=== PATIENT | female | born 1950 | race Caucasian/White ===

== ENCOUNTER 2020-04-13 12:40 | Outpatient (REF) | payer MEDICARE, SELFPAY | END 2020-04-13 12:41 | disposition home or self-care (01) | LOC: HO.HMGCLDS 12:40 | PROVIDERS: PCP Internal Medicine; Visit Provider Internal Medicine | DX: Z11.59 Encounter for screening for other viral diseases (principal) | CPT/HCPCS: 36415; 87635 ==

== ENCOUNTER 2020-05-17 13:11 | Emergency (ER) | payer MEDICARE, SELFPAY ==
--- NOTE | 2020-05-17 | ECG_ITS ---
Test Reason : CP Blood Pressure : / mmHG Vent. Rate : 060 BPM Atrial Rate : 060 BPM P-R Int : 136 ms QRS Dur : 072 ms QT Int : 410 ms P-R-T Axes : 050 067 040 degrees QTc Int : 410 ms Normal sinus rhythm Nonspecific ST abnormality Inferior leads Abnormal ECG No previous ECGs available Referred By: Generic ED Physician Electronically Signed By:HUSSEIN ANN MD
[2020-05-17 13:22] VITALS: BP 111/61; PULSE 63; RESP 18; TEMP 36.8; O2SAT 99; BMI 25.8
[2020-05-17 13:59] VITALS: BP 108/61; PULSE 63; RESP 20; TEMP 36.9; O2SAT 99
--- NOTE | 2020-05-17 14:09 | ED_ITS ---
HPI - Chest Pain General Chief Complaint: Dyspnea Stated Complaint: CHEST PAIN,SOB Time Seen by Provider: 05/17/20 14:09 Source: patient Mode of arrival: ambulatory Limitations: no limitations History of Present Illness MD complaint: chest pain and chest heaviness Pertinent past history: other (seems to have started after she started taking her new statin) Onset (ago): day(s) (this Friday) Timing of current episode: episodic Prior episodes: No Onset: during rest and during exertion Pain location: substernal and right chest Pain radiation: none Severity: moderate Quality: heaviness Relieving factors: nothing Exacerbating factors: exertion and movement Associated symptoms: dyspnea Treatment prior to arrival: none Related Data Allergies Allergy/AdvReac Type Severity Reaction Status Date / Time No Known Allergies Allergy Unverified 03/30/20 16:27 [No Known Allergies*] Review of Systems Review of Systems: Constitutional : No Weight loss, No Fever, No Chills ENT/Mouth : No sore throat, No Rhinorrhea Eyes: No Eye Pain, No Swelling Cardiovascular : pos Chest Pain, pos SOB, no Dyspnea on Exertion, No Orthopnea, No Edema, No Palpitations Respiratory : No Cough, No Sputum Gastrointestinal : no Nausea, No Vomiting, No Diarrhea, No abdominal Pain, No Hematochezia, No Melena Genitourinary : No Dysuria, No Urinary Frequency Musculoskeletal : No joint pain, No Myalgias, No Joint Swelling Skin : No Skin Lesions, No rash Neuro : No Weakness, No Numbness, No Dizziness, No Headache Psych : No Anxiety/Panic, No Depression Heme/Lymph: No Bruising, No Lymphadenopathy Endocrine : No Polyuria, No Polydipsia All other systems reviewed and are negative [facility] Past Medical History Medical History High cholesterol Social History Social History Alcohol intake: former Smoking Status: Never smoker Use of substances other than those prescribed or required for medical reasons: No Advance Directives: Yes Advance Directives Information Provided: Yes () Advance Directives on File: No Physical Exam Vital Signs: Vital Signs: Vital Signs Temp Pulse Resp BP Pulse Ox 05/17/20 13:59 98.4 F 63 20 108/61 99 05/17/20 13:22 98.2 F 63 18 111/61 99 Body Mass Index 25.8 Appearance: Alert. Oriented X3. No acute distress. Eyes: Pupils equal, round and reactive to light. ENT: Pharynx normal. Neck: Normal inspection. Neck supple. CVS: Normal heart rate and rhythm. Pulses normal. Respiratory: No respiratory distress. Breath sounds normal. Abdomen: Soft and nontender. Skin: Skin warm and dry. Normal skin color. Normal skin turgor. Extremities: No lower extremity edema. No calf ttp Neuro: Oriented X 3. No motor deficit. No sensory deficit. Course Course Course Narrative: 2 days of pain, EKG nonischemic, troponin negative, CTA:PE negative stable for DC, LFTs up - will hold statin and recheck has no RUQ pain MDM - Chest Pain MDM Narrative Medical decision making narrative: 69 yo female with hx of GERD and HPL has had chest pain since Friday, just started taking a statin, has had it all day today as well and feels short of breath, pain is R sided at this time will need labs, troponin x 1, CXR, ddimer - seems somewhat atypical for ACS, she is very nervous as well Lab Data Result diagrams: 05/17/20 14:44 05/17/20 14:44 Labs: Lab Results 05/17/20 05/17/20 05/17/20 Range/Units 14:44 14:44 14:44 WBC 5.3 (4.8-10.8) X10*3/uL RBC 3.88 L (4.20-5.50) X10*6/uL Hgb 12.4 (12.0-16.0) g/dl Hct 37.9 (37-47) % MCV 97.7 (80-98) fL MCH 32.0 (27.0-33.0) pg MCHC 32.7 (31.0-35.0) g/dl RDW 12.6 (11.0-16.0) % Plt Count 150 L (160-400) X10*3/uL MPV 12.0 (9.4-12.3) fL Immature Gran % (Auto) 0.4 (0.0-0.4) % Neut % (Auto) 64.5 (45-73) % Lymph % (Auto) 26.2 (20-40) % [place] % (Auto) 7.0 (2-11) % Eos % (Auto) 1.5 (0-4) % Baso % (Auto) 0.4 (0-2) % Lymph # (Auto) 1.4 (1.2-4.9) X10*3/uL [place] # (Auto) 0.4 (0.1-1.2) X10*3/uL Eos # (Auto) 0.1 (0.0-0.4) X10*3/uL Baso # (Auto) 0.0 (0.0-0.2) X10*3/uL Abs Immat Gran (auto) 0.02 (0.00-0.03) X10*3/uL Absolute Neuts (auto) 3.4 (2.0-8.3) X10*3/uL Absolute Nucleated RBC 0.000 (0.0-0.012) X10*3/uL Nucleated RBC % (auto) 0.0 (0.0-0.2) /100WBC D-Dimer 1560 NG/ML Sodium 139 (135-145) mmol/L Potassium 4.9 (3.3-5.1) mmol/l Chloride 105 (96-108) mmol/L Carbon Dioxide 26 (22-29) mmol/L Anion Gap 13 (12-20) BUN 16 (9-16) mg/dL Creatinine 0.85 (0.5-1.4) mg/dL Estim Creat Clear Calc 64.6 Estimated GFR > 60 Random Glucose 104 (60-115) mg/dL Calcium 8.5 (8.4-10.2) mg/dL Magnesium 2.1 (1.6-2.6) mg/dL Total Bilirubin 0.3 (0.0-1.0) mg/dL Direct Bilirubin < 0.2 (0.0-0.5) mg/dL AST 133 H (5-31) U/L ALT 92 H (0-31) U/L Alkaline Phosphatase 71 (39-117) U/L Troponin I High Sens (<3.5-17.0) ng/L B-Natriuretic Peptide (<100) pg/mL Total Protein 6.9 (6.5-8.0) g/dL Albumin 4.1 (3.5-5.0) g/dL Lipase 61 (8-78) U/L 05/17/20 Range/Units 14:44 WBC (4.8-10.8) X10*3/uL RBC (4.20-5.50) X10*6/uL Hgb (12.0-16.0) g/dl Hct (37-47) % MCV (80-98) fL MCH (27.0-33.0) pg MCHC (31.0-35.0) g/dl RDW (11.0-16.0) % Plt Count (160-400) X10*3/uL MPV (9.4-12.3) fL Immature Gran % (Auto) (0.0-0.4) % Neut % (Auto) (45-73) % Lymph % (Auto) (20-40) % [place] % (Auto) (2-11) % Eos % (Auto) (0-4) % Baso % (Auto) (0-2) % Lymph # (Auto) (1.2-4.9) X10*3/uL [place] # (Auto) (0.1-1.2) X10*3/uL Eos # (Auto) (0.0-0.4) X10*3/uL Baso # (Auto) (0.0-0.2) X10*3/uL Abs Immat Gran (auto) (0.00-0.03) X10*3/uL Absolute Neuts (auto) (2.0-8.3) X10*3/uL Absolute Nucleated RBC (0.0-0.012) X10*3/uL Nucleated RBC % (auto) (0.0-0.2) /100WBC D-Dimer NG/ML Sodium (135-145) mmol/L Potassium (3.3-5.1) mmol/l Chloride (96-108) mmol/L Carbon Dioxide (22-29) mmol/L Anion Gap (12-20) BUN (9-16) mg/dL Creatinine (0.5-1.4) mg/dL Estim Creat Clear Calc Estimated GFR Random Glucose (60-115) mg/dL Calcium (8.4-10.2) mg/dL Magnesium (1.6-2.6) mg/dL Total Bilirubin (0.0-1.0) mg/dL Direct Bilirubin (0.0-0.5) mg/dL AST (5-31) U/L ALT (0-31) U/L Alkaline Phosphatase (39-117) U/L Troponin I High Sens 4.0 (<3.5-17.0) ng/L B-Natriuretic Peptide 50 (<100) pg/mL Total Protein (6.5-8.0) g/dL Albumin (3.5-5.0) g/dL Lipase (8-78) U/L ECG Data ECG #1: Attestation: I personally reviewed and interpreted this ECG as follows: ECG interpretation date: 05/17/20 ECG interpretation time: 14:19 Interpretation: Rate: 60 Rhythm: NSR [place]: normal Normal P waves. Normal RACHEL. Normal QRS complex. ST T wave : normal qTC: normal prior studies: no acute ischemia The study has been interpreted contemporaneously by me. . Discharge Plan Discharge Clinical Impression: Chest pain Qualifiers: Chest pain type: unspecified Qualified Code(s): R07.9 - Chest pain, unspecified Patient Disposition: Home, Self-Care Instructions: Chest Pain (ED) Additional Instructions: return to ED for any worsening symptoms or concerns stop taking atorvastatin Referrals: Sagar Jordan MD [Primary Care Provider] - 1 week (repeat liver function tests)
--- NOTE | 2020-05-17 14:14 | XR_ITS ---
EXAMINATION: XR CHEST CLINICAL INFORMATION: Dyspnea COMPARISON: None TECHNIQUE: Frontal view of the chest was obtained. FINDINGS: No significant abnormality is noted involving the heart, lungs, mediastinum, bony thorax or soft tissues. XR/XR chest 1V IMPRESSION: Unremarkable chest examination.
[2020-05-17 14:51] LABS: MANUAL DIFF FLAG NO
[2020-05-17 14:53] LABS: Basophils Percent Auto 0.4 % (0-2); Eosinophils Absolute Auto 0.1 X10*3/uL (0.0-0.4); Eosinophils Percent Auto 1.5 % (0-4); Hematocrit 37.9 % (37-47); Hemoglobin 12.4 g/dl (12.0-16.0); Imm Gran Abs Auto 0.02 X10*3/uL (0.00-0.03); Imm Gran Pct Auto 0.4 % (0.0-0.4); Lymphocytes Absolute Auto 1.4 X10*3/uL (1.2-4.9); Lymphocytes Percent Auto 26.2 % (20-40); Mean Corpuscular HGB Conc 32.7 g/dl (31.0-35.0); Mean Corpuscular Volume 97.7 fL (80-98); Monocytes Absolute Auto 0.4 X10*3/uL (0.1-1.2); Neutrophils Absolute Auto 3.4 X10*3/uL (2.0-8.3); Neutrophils Percent Auto 64.5 % (45-73); Platelet Count 150 X10*3/uL (160-400); Red Blood Count 3.88 X10*6/uL (4.20-5.50); Red Cell Distribution Width 12.6 % (11.0-16.0); White Blood Count 5.3 X10*3/uL (4.8-10.8)
[2020-05-17 15:08] LABS: D Dimer 1560 NG/ML
--- NOTE | 2020-05-17 15:11 | CT_ITS ---
EXAMINATION: CT ANGIOGRAM OF THE CHEST WITH AND WITHOUT CONTRAST (CT PULMONARY ANGIOGRAM FOR PE) CLINICAL INFORMATION: Reason for Exam chest pain elevated D-dimer COMPARISON: None TECHNIQUE: Prior to contrast administration, noncontrast localization images were obtained. Subsequently, multidetector volumetric imaging was performed from the thoracic inlet to below the diaphragms following the administration of 80 mL Omnipaque 350 intravenous contrast. No contrast reaction reported Sagittal, coronal, and MIP oblique sagittal reformatted images were obtained on the CT workstation, uploaded to PACS, and reviewed. This CT examination was performed using dose optimization techniques as appropriate, variously including the following: *Automated exposure control *Adjustment of mA and/or kV according to patient size (this includes techniques or standardized protocols for targeted exams where dose is matched to indication/reason for exam; i.e. extremities or head) *Use of iterative reconstruction technique Total exam dose-length product 312 mGy-cm FINDINGS: The exam is limited secondary to patient breathing artifact. QUALITY OF STUDY/CONTRAST BOLUS: Satisfactory. PULMONARY ARTERIES: No central or segmental pulmonary emboli. THORACIC AORTA: No aneurysm or dissection. LUNG: No focal consolidation, nodules or masses. PLEURA: No pleural effusion or pneumothorax. MEDIASTINUM: Normal heart size. No pericardial effusion. No hilar or mediastinal lymphadenopathy. No evidence of septal bowing or right heart strain. CHEST WALL/AXILLA: No axillary or internal mammary lymphadenopathy. There is mild ventral spondylosis throughout dorsal spine. OSSEOUS STRUCTURES: No lytic or sclerotic process seen. UPPER ABDOMEN: Visualized liver, spleen, pancreas and bilateral adrenal glands are unremarkable. No reflux of contrast into the hepatic veins to suggest elevated right heart pressures. CT/CT angio chest PE protocol IMPRESSION: No evidence of PE. No evidence of thoracic aneurysm. The lungs are clear. VTE: negative
[2020-05-17 15:22] LABS: Alanine Aminotransferase 92 U/L (0-31); Albumin Level 4.1 g/dL (3.5-5.0); Alkaline Phosphatase 71 U/L (39-117); Anion Gap 13 (12-20); Aspartate Amino Transferase 133 U/L (5-31); Bilirubin Direct < 0.2 mg/dL (0.0-0.5); Bilirubin Total 0.3 mg/dL (0.0-1.0); Blood Urea Nitrogen 16 mg/dL (9-16); Calcium 8.5 mg/dL (8.4-10.2); Carbon Dioxide 26 mmol/L (22-29); Chloride 105 mmol/L (96-108); Creatinine Clr Calc Pharmacy 64.6; Estimated Glomerular Filt Rate > 60; Glucose Random 104 mg/dL (60-115); Lipase 61 U/L (8-78); Magnesium 2.1 mg/dL (1.6-2.6); Potassium 4.9 mmol/l (3.3-5.1); Sodium 139 mmol/L (135-145); Total Protein 6.9 g/dL (6.5-8.0)
[2020-05-17 15:25] LABS: B Type Natriuretic Peptide 50 pg/mL (<100)
[2020-05-17] MEDS: iohexoL 350 MG/ML 100 ML INFUS..BTL 65 ML IV (15:53)
[2020-05-17 16:17] VITALS: BP 120/62; PULSE 57; RESP 13; TEMP 36.8; O2SAT 99
== END 2020-05-17 16:30 | disposition home or self-care (01) ==
PROVIDERS: Emergency Provider Emergency Medicine; PCP Internal Medicine
DX: R07.9 Chest pain, unspecified (principal)
CPT/HCPCS: 36415; 71045; 71275; 80048; 80076; 83690; 83735; 83880; 84484; 85025; 85379; 93005; 99284; Q9967

== ENCOUNTER 2021-11-13 09:37 | Emergency (ER) | payer MEDICARE, SELFPAY ==
--- NOTE | ~2021-11-13 | CT_ITS ---
EXAMINATION: CT HEAD WITHOUT CONTRAST CLINICAL INFORMATION: Fall. Head injury. COMPARISON: None TECHNIQUE: Contiguous axial imaging was performed from the skull base to vertex without intravenous administration of contrast. This CT examination was performed using dose optimization techniques as appropriate, variously including the following: *Automated exposure control *Adjustment of mA and/or kV according to patient size (this includes techniques or standardized protocols for targeted exams where dose is matched to indication/reason for exam; i.e. extremities or head) *Use of iterative reconstruction technique DLP: 578 mGy-cm FINDINGS: There is no evidence of acute intracranial hemorrhage or territorial infarction. No abnormal mass effect or midline shift is seen. [place] to white matter differentiation is well preserved. No extra-axial fluid collections are identified. The ventricles are normal in size. There is no abnormal attenuation within the brain parenchyma. The osseous structures and soft tissues are normal. The mastoid air cells and visualized portions of the paranasal sinuses are well aerated. CT/CT head/brain wo con IMPRESSION: No acute intracranial pathology.
--- NOTE | ~2021-11-13 | XR_ITS ---
EXAMINATION: XR SHOULDER, RIGHT CLINICAL INFORMATION: Limited range of motion status post fall. COMPARISON: Chest radiographs dated 05/17/2020. TECHNIQUE: AP external rotation, Grashey, scapular Y, and axillary views of the right shoulder. FINDINGS: A small osseous density seen superior to the humeral head in the humeral acromial interval. The glenohumeral and acromioclavicular joints are intact with the soft tissues are unremarkable. Surgical clips overlie the right axilla without interval change. XR/XR shoulder RT min 2V IMPRESSION: Small osseous density superior to the humeral head appears to have been present on the 2019 chest radiograph study and is likely degenerative in nature. No definitive acute abnormality.
--- NOTE | ~2021-11-13 | XR_ITS ---
EXAMINATION: XR FOOT, RIGHT CLINICAL INFORMATION: Right foot pain status post fall. COMPARISON: None TECHNIQUE: AP, lateral, and oblique views of the right foot. FINDINGS: The bones and soft tissues are normal. No fracture. Alignment is anatomic. Joint spaces are maintained. XR/XR foot RT 2V IMPRESSION: Unremarkable right foot.
--- NOTE | ~2021-11-13 | XR_ITS ---
EXAMINATION: CR X-RAY KNEE BILATERAL CLINICAL INFORMATION: Bilateral knee pain. COMPARISON: None TECHNIQUE: 4 views each of the bilateral knees were obtained. FINDINGS: Mild medial femoral-tibial joint space narrowing is seen. There is no acute fracture or dislocation. There is no joint effusion. The soft tissues are unremarkable. XR/XR knee LT 3V IMPRESSION: Mild medial femoral-tibial joint space narrowing may be normal for the patient or degenerative in nature, similar bilaterally.
--- NOTE | ~2021-11-13 | XR_ITS ---
EXAMINATION: CR X-RAY KNEE BILATERAL CLINICAL INFORMATION: Bilateral knee pain. COMPARISON: None TECHNIQUE: 4 views each of the bilateral knees were obtained. FINDINGS: Mild medial femoral-tibial joint space narrowing is seen. There is no acute fracture or dislocation. There is no joint effusion. The soft tissues are unremarkable. XR/XR knee RT 3V IMPRESSION: Mild medial femoral-tibial joint space narrowing may be normal for the patient or degenerative in nature, similar bilaterally.
[2021-11-13 09:48] VITALS: BP 97/46; PULSE 59; RESP 19; TEMP 36.6; O2SAT 98; BMI 24.2
--- NOTE | 2021-11-13 11:44 | ED.FALL ---
HPI - Fall General Chief Complaint: Fall Stated Complaint: Fall T-1 Time Seen by Provider: 11/13/21 10:25 Source: patient Mode of arrival: ambulatory History of Present Illness HPI Narrative: 70-year-old female with a past medical history anxiety, nausea motors, hyperlipidemia, sleep apnea, presenting to the ED complaining of right shoulder, bilateral knee, right foot, and headache s/p mechanical fall last night. States tripped over wire landing face 1st on hardwood floor. Denies LOC. Denies taking anticoagulation. Has been ambulatory and incident. Denies numbness, tingling, weakness, urinary incontinence/retention complaint: fall Onset (ago): day(s) Related Data Home Medications Medication Instructions Recorded Confirmed atorvastatin 40 mg tablet 40 mg PO DAILY 02/17/21 calcium carbonate 333 mg-magnesium tab PO 02/17/21 oxide 133 mg-zinc gluc 5 mg tablet levothyroxine 75 mcg tablet 75 mcg PO DAILY 02/17/21 lidocaine HCl 2 % mucosal solution ml PO 02/17/21 (Lidocaine Viscous) lorazepam 2 mg tablet 2 mg PO 02/17/21 melatonin 5 mg capsule mg PO 02/17/21 omega 3,5,6,7,9 combination no.1 cap PO 02/17/21 700 mg-salmon oil 1,500 mg capsule (Complete [place]) sertraline 25 mg tablet mg PO 02/17/21 Allergies Allergy/AdvReac Type Severity Reaction Status Date / Time No Known Allergies Allergy Unverified 03/30/20 16:27 [No Known Allergies*] pnemonia vaccine Allergy Intermediate streaks Uncoded 02/17/21 10:58 going down arm, itchiness Review of Systems Review of Systems: Constitutional: No Fever, No Chills ENT/Mouth: No Ear Pain, No Nasal Congestion, No sore throat, No Rhinorrhea, No Swallowing Difficulty Cardiovascular: No Chest Pain, No SOB Respiratory: No Cough, No Sputum, No Wheezing Gastrointestinal: No Nausea, No Vomiting, No Diarrhea, No Constipation, No Abdominal pain Genitourinary: No Dysuria, No Urinary Frequency, No Hematuria, No Urinary Incontinence/retention Musculoskeletal: + joint pain, No Myalgias, No Joint Swelling Skin: No Skin Lesions, No rash Neuro: No Weakness, No Numbness, No Paresthesias, +headache, +head injury Yes all other systems are reviewed and are negative [facility] Past Medical History Attestation statement: The following information was validated with the patient. Medical History Anxiety Anuel's disease High cholesterol Sleep apnea Social History Social History Alcohol intake: former Advance Directives: Yes Advance Directives Information Provided: Yes Advance Directives on File: No Physical Exam Vital Signs: Vital Signs: Last Vital Signs Temp 98 F 11/13/21 09:48 Pulse 59 11/13/21 09:48 Resp 19 11/13/21 09:48 BP 120/69 11/13/21 12:11 Pulse Ox 98 11/13/21 09:48 BMI result Body Mass Index 24.2 Const: General: cooperative, healthy appearing and no acute distress Orientation/consciousness: patient oriented x3 Limitations: no limitations HEENT: Other: + small erythematous area to central forehead. No palpable skull depression Head: Yes normal to inspection, No Barton's sign and No raccoon eyes Ears: hearing grossly normal bilaterally General nose exam: Normal external nose present Face and sinus: Yes normal facial exam Mouth: Normal oral and palatal mucosa present Throat: Yes posterior oropharynx normal Eyes: General: appearance normal, both eyes and all related structures Pupils: Equal, round and reactive pupils present EOM: EOMs intact bilaterally Neck: Other: No midline cervical spinous tenderness Neck: Yes normal visual inspection and Yes no meningeal signs Resp: Effort & Inspection: normal respiratory effort and no respiratory distress Cardio: Rate: regular rate Heart sounds: S1 normal heart sound present and S2 normal heart sound present Peripheral pulses: radial pulses present and dorsalis pedis present GI: Inspection: Yes normal to inspection Palpation (GI): Soft to palpation, nontender, no guarding and not rigid : General: Yes no CVA tenderness Back/Spine/Pelvis: Other: No midline thoracic/lumbar spinous tenderness/step-off or deformity Back: no CVA tenderness Skin: Rashes: no rashes Wounds: no wounds Neuro: Other: Strength intact throughout. Sensation intact to light touch. Neurovascular intact distally General: patient oriented x3, gait normal, tone normal, moves all extremities, no meningeal signs, no focal motor deficits and CN's II-XI intact bilaterally Cranial nerves: Yes CN's II-XII intact bilaterally, Yes Equal, round and reactive pupils present, Yes Bilaterally intact EOM present and Yes Nystagmus not present Gait exam (Neuro): Normal gait present Motor exam (neuro): 5/5 motor strength present throughout Extrem: Other: No visible deformity. Mild tenderness to right shoulder and right trapezius muscle. Bilateral knees without deformity, mildly tender to bilateral patella. FROM intact R foot with mild diffuse ttp, NV intact distally General: Yes normal to inspection Course Course Course Narrative: CT head/brain wo con IMPRESSION: No acute intracranial pathology. XR shoulder RT min 2V IMPRESSION: Small osseous density superior to the humeral head appears to have been present on the 2019 chest radiograph study and is likely degenerative in nature. No definitive acute abnormality. XR foot RT 2V IMPRESSION: Unremarkable right foot. XR knee RT 3V IMPRESSION: Mild medial femoral-tibial joint space narrowing may be normal for the patient or degenerative in nature, similar bilaterally.? XR knee LT 3V IMPRESSION: Mild medial femoral-tibial joint space narrowing may be normal for the patient or degenerative in nature, similar bilaterally.? > results discussed with patient including worrisome signs and symptoms and strict return precautions needed follow-up with PCP MDM - Fall MDM Narrative Medical decision making narrative: 70-year-old female with a past medical history anxiety, nausea motors, hyperlipidemia, sleep apnea, presenting to the ED complaining of right shoulder, bilateral knee, right foot, and headache s/p mechanical fall last night. On exam vital signs stable, NAD/nontoxic appearing, physical exam as above. No focal neuro deficits, no midline spinous tenderness throughout. Concern for MSK pain/strain vs arthralgia. Lower concern for fracture. Concern for concussion/head injury, lower concern for ICH but will obtain head CT due to age Plan: Imaging Medical Records Attestation: I reviewed the patient's medical records. Lab Data Attestation: I reviewed the patient's lab results. Discharge Plan Discharge Clinical Impression: Shoulder pain, Knee joint pain, Acute foot pain, Head injury, Fall Patient Disposition: Home, Self-Care Instructions: Head Injury (ED), Arthralgia (ED), Fall Prevention (ED) Additional Instructions: Your imaging studies do not show any fracture/breaks, just age-related/degenerative changes. Head CT is unremarkable Please take Tylenol and Motrin Ice. Rest. Please follow-up with her doctor. If symptoms persist or worsen, constant worsening headache, nausea/vomiting or weakness please return to the ED Prescriptions: No Action lidocaine HCl [Lidocaine Viscous] 2 % solution PO 0RF lorazepam 2 mg tablet 2 mg PO 0RF levothyroxine 75 mcg tablet 75 mcg PO DAILY 0RF sertraline 25 mg tablet PO 0RF atorvastatin 40 mg tablet 40 mg PO DAILY 0RF melatonin 5 mg capsule PO 0RF Complete [place] 700-1,500 mg-mg capsule PO 0RF calcium carb-mag ox-zinc gluc 333-133-5 mg tablet PO 0RF Referrals: Sagar Jordan MD [Primary Care Provider] - 5 days Interventions: ED Discharge Assessment Last Done: 11/13/21 12:15 Discharge Date/Time: 11/13/21 12:15
[2021-11-13 12:11] VITALS: BP 120/69
== END 2021-11-13 12:15 | disposition home or self-care (01) ==
PROVIDERS: Emergency Provider Emergency Medicine; PCP Internal Medicine
DX: S89.91XA Unspecified injury of right lower leg, initial encounter (principal); S89.92XA Unspecified injury of left lower leg, initial encounter; S49.91XA Unspecified injury of right shoulder and upper arm, initial encounter; S09.90XA Unspecified injury of head, initial encounter; M25.561 Pain in right knee; M79.672 Pain in left foot; M79.671 Pain in right foot; M25.562 Pain in left knee; W01.0XXA Fall on same level from slipping, tripping and stumbling without subsequent striking against object, initial encounter; Y93.9 Activity, unspecified; Y92.9 Unspecified place or not applicable; Y99.9 Unspecified external cause status; Z79.899 Other long term (current) drug therapy
CPT/HCPCS: 70450; 73030; 73562; 73620; 99283; 99284

== ENCOUNTER 2022-10-08 10:05 | Outpatient (REF) | payer MEDICARE, SELFPAY ==
--- NOTE | ~2022-10-08 | XR_ITS ---
EXAMINATION: XR KNEE, RIGHT CLINICAL INFORMATION: Unremarkable right knee. COMPARISON: None available. TECHNIQUE: Four views of the right knee. FINDINGS: Mild medial femoral-tibial and patellofemoral degenerative joint changes are seen. There is no acute fracture or dislocation. There is no joint effusion. The soft tissues are unremarkable. XR/XR knee RT 4V IMPRESSION: Mild degenerative joint changes most consistent with osteoarthritis.
== END 2022-10-08 10:06 | disposition home or self-care (01) ==
LOC: HO.HMGCX 10:05
PROVIDERS: Visit Provider Emergency Medicine
DX: S89.91XA Unspecified injury of right lower leg, initial encounter (principal); X58.XXXA Exposure to other specified factors, initial encounter; Y93.9 Activity, unspecified; Y92.9 Unspecified place or not applicable; Y99.9 Unspecified external cause status
CPT/HCPCS: 73564

== ENCOUNTER 2024-10-21 15:54 | Inpatient (IN) | payer MEDICARE, SELFPAY ==
--- NOTE | ~2024-10-21 | CT_ITS ---
CLINICAL HISTORY: lower abd pain CT abdomen and pelvis with contrast Comparison: None Findings: Mild dependent atelectasis. 1.3 cm peripherally calcified splenic artery aneurysm at the hilum. Liver, gallbladder, spleen, pancreas, and adrenal glands are within normal limits. CBD measures 7-8 mm with distal tapering. No hydronephrosis. Symmetric contrast enhancement of the kidneys. Nonobstructing calculus in the right kidney. No bowel obstruction, pneumatosis or pneumoperitoneum. Appendix is mildly dilated at the base with mild surrounding fat stranding. Large amount of stool in the cecum. Pelvic contents are within normal limits. The bones are intact. IMPRESSION: 1. Mildly dilated appendix with mild surrounding fat stranding, concerning for acute appendicitis. No perforation or abscess. 2. CBD measures 7-8 mm with distal tapering, favored to be age-related dilatation. Correlate with LFTs. This document has been electronically signed by: Reina Lam MD on 10/21/2024 21:15:34
--- NOTE | 2024-10-21 16:02 | ED.ABDPAIN ---
HPI - Abdominal Pain General Chief Complaint: Abdominal Pain Stated Complaint: abd pain Time Seen by Provider: 10/21/24 18:03 History of Present Illness HPI narrative: patient is a 73-year-old female presents today with having abdominal pain that is been ongoing for few months at versus fairly diffuse patient is worried that she has pain in her knees. But the pain has not gone away in the last 3 days it has gotten worse. Came to the ED asking for help complaining of generalized abdominal pain. There is no fever no chills. There is no diaphoresis. Related Data Home Medications ?Medication ?Instructions ?Recorded ?Confirmed calcium 333 mg tab PO 02/17/21 (carbonate)-magnesium 133 mg (oxide)-zinc 5 mg tablet levothyroxine 75 mcg tablet 75 mcg PO DAILY 02/17/21 lidocaine HCl 2 % mucosal solution ml PO 02/17/21 (Lidocaine Viscous) melatonin 5 mg capsule mg PO 02/17/21 omega 3,5,6,7,9 combination no.1 cap PO 02/17/21 700 mg-salmon oil 1,500 mg capsule (Complete [place]) sertraline 25 mg tablet mg PO 02/17/21 meloxicam 15 mg tablet 15 mg PO DAILY 10/08/22 Allergies Allergy/AdvReac Type Severity Reaction Status Date / Time amoxicillin [From Augmentin] AdvReac Headache Verified 10/21/24 16:04 clavulanic acid AdvReac Headache Verified 10/21/24 16:04 [From Augmentin] pnemonia vaccine Allergy Intermediate streaks Uncoded 02/17/21 10:58 going down arm, itchiness Review of Systems Review of Systems Positive abdominal pain Yes all other systems are reviewed and are negative PMFSH Past Medical History Attestation statement: The following information was validated with the patient. Medical History Knee injury Anuel's disease Sleep apnea Anxiety High cholesterol Social History Social History Alcohol intake: never Patient Tobacco Use Status: Never used Tobacco Smoked in Last 30 Days: No Use of substances other than those prescribed or required for medical reasons: No Advance Directives: Yes Advance Directives Information Provided: Yes Advance Directives on File: No Do you have a plan to hurt others: No Plan Physical Exam ED Vital Signs: Vital Signs - 24 hr 10/21/24 16:03 10/21/24 18:06 10/21/24 21:53 Temperature 97.7 F 98.2 F Pulse Rate 78 68 65 Respiratory Rate 16 18 16 Blood Pressure 122/45 L 144/60 H 127/72 Pulse Oximetry 99 97 97 Oxygen Delivery Method Room Air Room Air Room Air BMI result Body Mass Index 24.9 Appearance: Alert. Oriented X3. No acute distress. Eyes: Pupils equal, round and reactive to light. ENT: Pharynx normal. Neck: Normal inspection. Neck supple. No lymph nodes noted. No crepitus CVS: Normal heart rate and rhythm. Pulses normal. Normal S1 and S2 Respiratory: No respiratory distress. Breath sounds normal. No Wheezing. No rales Abdomen: soft mild tenderness in the right low quadrant no rebound or guarding Skin: Skin warm and dry. Normal skin color. Normal skin turgor. Extremities: No lower extremity edema. Neurovascular intact to all extremities. No Lacerations. No Rash Neuro: Oriented X 3. No motor deficit. No sensory deficit. Moving all extermities. No slurred speech Course Course Course Narrative: This is a Rapid Medical Exam performed in triage by Clair Nunez PA-C. Full HPI, ROS and PE to be performed by primary ED provider. 73 yo F w/PHMx knee replacement on 08/09/24 presenting to the ED c/o diffuse lower abdominal pain x few months, worsening the past few days. Has been taking multiple meds since surgery, & thought that was causing sx however still has pain. Pain is sharp, burning, & dull. Last BM this AM. denies urinary sx PE: abdomen soft w/suprapubic > right ttp. no rebound or guarding Plan: labs, UA Medical Decision Making Medical Decision Making MDM Narrative: patient has nonspecific abdominal pain has been ongoing for few months but getting worse the last [address] scan positive for possible early appendicitis. Rocephin and Flagyl was given. Will admit patient for further evaluation surgical team consulted on the case agree with plan. Patient's white count is normal. Patient is electrolytes normal not on blood thinners LFTs are normal urine showed no gross signs of infection. Currently in stable condition awaiting admission. Differential Diagnosis Differential Diagnoses: The differential diagnosis associated with the presentation includes Appendicitis, colitis, diverticulitis Admission/Observation Consideration of admission/observation: Escalation of care including admission/observation considered Consult Healthcare Provider Management of the patient was discussed with: Senior Engineering Team Leader ( surgical team was consulted) Lab Data MDM Lab Attestation statement: I reviewed the patient's lab results. 10/21/24 16:31 10/21/24 16:31 Labs: Lab Results 10/21/24 Range/Units 16:31 WBC 6.1 (4.8-10.8) X10*3/uL RBC 3.88 L (4.20-5.50) X10*6/uL Hgb 12.2 (12.0-16.0) g/dl Hct 36.4 L (37.0-47.0) % MCV 93.8 (80.0-98.0) fL MCH 31.4 (27.0-33.0) pg MCHC 33.5 (31.0-35.0) g/dl RDW 13.0 (11.0-16.0) % Plt Count 160 (160-400) X10*3/uL MPV 11.3 (9.4-12.3) fL Immature Gran % (Auto) 0.5 H (0.0-0.4) % Neut % (Auto) 71.6 (45-73) % Lymph % (Auto) 21.6 (20-40) % [place] % (Auto) 4.0 (2-11) % Eos % (Auto) 1.8 (0-4) % Baso % (Auto) 0.5 (0-2) % Lymph # (Auto) 1.3 (1.2-4.9) X10*3/uL [place] # (Auto) 0.2 (0.1-1.2) X10*3/uL Eos # (Auto) 0.1 (0.0-0.4) X10*3/uL Baso # (Auto) 0.0 (0.0-0.2) X10*3/uL Abs Immat Gran (auto) 0.03 (0.00-0.03) X10*3/uL Absolute Neuts (auto) 4.3 (2.0-8.3) x10*3/uL Absolute Nucleated RBC 0.000 (0.0-0.012) X10*3/uL Nucleated RBC % (auto) 0.0 (0.0-0.2) /100WBC Sodium 142 (135-145) mmol/L Potassium 3.9 (3.3-5.1) mmol/L Chloride 107 (96-108) mmol/L Carbon Dioxide 27 (22-29) mmol/L Anion Gap 12 (12-20) BUN 19 H (9-16) mg/dL Creatinine 0.73 (0.5-1.4) mg/dL Estim Creat Clear Calc 65.2 Estimated GFR > 60 Random Glucose 175 H (60-115) mg/dL Calcium 9.4 D (8.4-10.2) mg/dL Magnesium 1.9 (1.6-2.6) mg/dL Total Bilirubin 0.3 (0.0-1.0) mg/dL Direct Bilirubin 0.1 (0.0-0.5) mg/dL AST 24 (5-31) U/L ALT 22 (0-31) U/L Alkaline Phosphatase 57 (39-117) U/L Total Protein 6.9 (6.5-8.0) g/dL Albumin 4.1 (3.5-5.0) g/dL Lipase 44 (8-78) U/L Urine Color Yellow Urine Appearance Clear Urine pH 5.5 (5.0-9.0) Ur Specific [place] 1.015 (1.005-1.025) Urine Protein Negative (Neg-Trace) mg/dL Urine Glucose (UA) Negative (Negative) mg/dL Urine Ketones Negative (Negative) mg/dL Urine Blood Moderate (2+) H (Negative) Urine Nitrite Negative (Negative) Ur Leukocyte Esterase Negative (Negative) Urine RBC 6-10 H (0-2) /HPF Urine WBC 0-5 (0-5) /HPF Ur Squamous Epith Cells 0-2 (0-2) /HPF Urine Bacteria None Seen (None Seen) Hyaline Casts 0-2 (0-2) /LPF Independent Interpretation I performed an independent interpretation of an: EKG ( my interpretation patient's EKG showed a sinus pattern heart rate is 70 ND QRS QTC normal no acute ST segment elevation) and CT Scan ( CT showed no obstruction) Radiology Impression Discussion of test interpretation with radiology: I discussed test interpretation with the radiologist and I have reviewed the radiologist's reading. Radiologist Impression: I discussed with the radiology team about possibility of appendicitis on CT Social Determinants Patient?s care significantly limited by Social Determinants of Health including: Problems related to primary support group Medications Administered Generic Name Dose Route Start Last Admin Trade Name Freq PRN Reason Stop Dose Admin Metronidazole 500 mg in 100 mls @ 100 mls/hr 10/21/24 21:27 10/21/24 21:55 Flagyl IV 10/21/24 22:26 100 mls/hr ONCE ONE Administration Discontinued Medications Generic Name Dose Route Start Last Admin Trade Name Freq PRN Reason Stop Dose Admin Ceftriaxone Sodium 2 gm 10/21/24 21:27 10/21/24 21:55 Ceftriaxone Sodium 2 Gm Vial IVPUSH 10/21/24 21:28 2 gm ONCE ONE Administration Iohexol 100 ml 10/21/24 20:31 10/21/24 20:31 Iohexol 350 Mg/Ml 100 Ml Infus..Btl IV 10/21/24 20:32 85 ml ONCE ONE Administration Discharge Plan Discharge Clinical Impression: Abdominal pain, Acute appendicitis Patient Disposition: Admitted As Inpatient Print Language: Irish
[2024-10-21 16:03] VITALS: BP 122/45; PULSE 78; RESP 16; TEMP 36.5; O2SAT 99; BMI 24.9
--- NOTE | 2024-10-21 16:05 | ECG_ITS ---
Test Reason : ABDOMINAL PAIN Blood Pressure : */* mmHG Vent. Rate : 67 BPM Atrial Rate : 67 BPM P-R Int : 142 ms QRS Dur : 66 ms QT Int : 392 ms P-R-T Axes : 6 -4 -25 degrees QTcB Int : 414 ms Normal sinus rhythm Cannot rule out Inferior infarct , age undetermined Abnormal ECG When compared with ECG of 17-May-2020 13:18, Minimal criteria for Inferior infarct are now Present Inverted T waves have replaced nonspecific T wave abnormality in Inferior leads Referred By: Clair Nunez Electronically Signed By: Chuck Costello
[2024-10-21 16:36] LABS: MANUAL DIFF FLAG NO
[2024-10-21 16:41] LABS: Appearance Urine Clear; Basophils Percent Auto 0.5 % (0-2); Color Urine Yellow; Eosinophils Absolute Auto 0.1 X10*3/uL (0.0-0.4); Eosinophils Percent Auto 1.8 % (0-4); Glucose Urine UA Negative (Negative); Hematocrit 36.4 % (37.0-47.0); Hemoglobin 12.2 g/dl (12.0-16.0); Imm Gran Abs Auto 0.03 X10*3/uL (0.00-0.03); Imm Gran Pct Auto 0.5 % (0.0-0.4); Leukocyte Esterase Urine Negative (Negative); Lymphocytes Absolute Auto 1.3 X10*3/uL (1.2-4.9); Lymphocytes Percent Auto 21.6 % (20-40); Mean Corpuscular HGB Conc 33.5 g/dl (31.0-35.0); Mean Corpuscular Hemoglobin 31.4 pg (27.0-33.0); Mean Corpuscular Volume 93.8 fL (80.0-98.0); Mean Platelet Volume 11.3 fL (9.4-12.3); Monocytes Absolute Auto 0.2 X10*3/uL (0.1-1.2); Neutrophils Absolute Auto 4.3 x10*3/uL (2.0-8.3); Neutrophils Percent Auto 71.6 % (45-73); Nitrite Urine Negative (Negative); PH 5.5 (5.0-9.0); Platelet Count 160 X10*3/uL (160-400); Red Blood Count 3.88 X10*6/uL (4.20-5.50); Specific Gravity - Urine 1.015 (1.005-1.025); UMIC TRIGGER UACC YES; Urine Blood Moderate (2+) (Negative); Urine Ketones Negative (Negative); Urine Protein Negative (Neg-Trace); White Blood Count 6.1 X10*3/uL (4.8-10.8)
[2024-10-21 16:46] LABS: Bacteria Urine None Seen (None Seen); Hyaline Casts Urine 0-2 /LPF (0-2); Squamous Epithelial Cell Urine 0-2 /HPF (0-2); WBC Urine 0-5 /HPF (0-5)
[2024-10-21 16:52] LABS: Alanine Aminotransferase 22 U/L (0-31); Albumin Level 4.1 g/dL (3.5-5.0); Alkaline Phosphatase 57 U/L (39-117); Anion Gap 12 (12-20); Aspartate Amino Transferase 24 U/L (5-31); Bilirubin Direct 0.1 mg/dL (0.0-0.5); Bilirubin Total 0.3 mg/dL (0.0-1.0); Blood Urea Nitrogen 19 mg/dL (9-16); Calcium 9.4 mg/dL (8.4-10.2); Carbon Dioxide 27 mmol/L (22-29); Chloride 107 mmol/L (96-108); Creatinine Clr Calc Pharmacy 65.2; Estimated Glomerular Filt Rate > 60; Glucose Random 175 mg/dL (60-115); Lipase 44 U/L (8-78); Magnesium 1.9 mg/dL (1.6-2.6); Potassium 3.9 mmol/L (3.3-5.1); Sodium 142 mmol/L (135-145); Total Protein 6.9 g/dL (6.5-8.0)
[2024-10-21 18:06] VITALS: BP 144/60; PULSE 68; RESP 18; O2SAT 97
--- OUTSIDE RECORDS SUMMARY | 2024-10-21 18:18 | XMS_ITS | Continuity of Care Document ---
Author Organization [facility] [address] [place] [address] Phone [phone] Care Team Providers Care Headmaster/Mistress Name Role Phone Jose De La Cruz M.D. Care Team Information Receive r [phone] Problems Active Problems Provider Date Alopecia Maria A menjivar M.D. Onset: 03/24/2023 Anxiety Maria A menjivar M.D. Onset: 03/24/2023 Sleep apnea Maria A menjivar M.D. Onset: 03/24/2023 Environmental allergy Maria A montes M.D. Onset: 03/24/2023 Gastroesophageal reflux dise ase without esophagitis Maria A Chambers M.D. Onset: 03/24/2023 Hypercholesterolemia Maria A perrin M.D. Onset: 03/24/2023 Insomnia Maria A menjivar M.D. Onset: 03/24/2023 Osteoporosis Maria A menjivar M.D. Onset: 03/24/2023 Malignant neoplasm of female breast Hanny Chambers M.D. Onset: 03/24/2023 Temporomandibular joint disorder Ayaka Chambers M.D. Onset: 03/24/2023 Hypothyroidism Maria A menjivar M.D. Onset: 03/24/2023 Anuel thyroiditis Maria A montes M.D. Onset: 03/24/2023 Chronic fatigue syndrome Maria A Taylor M.D. Onset: 03/24/2023 Degeneration of cervical int ervertebral disc Maria A Chambers M.D. Onset: 03/24/2023 Scoliosis deformity of spine Maria A Dodson M.D. Onset: 03/24/2023 Urge incontinence of urine Maria A Stewart M.D. Onset: 03/24/2023 Varicose veins of lower extremity Sangeetha Chambers M.D. Onset: 03/24/2023 Social History Type Date Description Comments Sex Unknown Lives With Spouse Occupation Teacher Work Status Retired ETOH Use Denies alcohol use Tobacco Use Start: Unknown Patient has never smoked Allergies and adverse reactions Active Allergies Criticality Reaction Severity Comments Date Albuterol Unable to assess criticality 03/24/2023 Pneumovax 23 Unable to assess criticality 03/24/2023 Medications Active Medications SIG Qnty Indications Ordering Provider Date Levothyroxine [id number] Tablets take 1 tablet by mouth daily 6 x week 90tabs Maria A Chambers M.D. 03/24/2023 [id number] Tablets Take 1 Tablet By Mouth Daily Delfina Funes MD Sertraline RDS64vy Tablets Take 1 Tablet By Mouth Daily AT Bedtime Sagar Jordan M.D. Fluticasone Bhmjfvqdlc07liw/Act Suspension Shake Liquid And Use 1 [place] In Each Nostril Twice Daily Unknown Atorvastatin Fysacwm94fp Tablets Take 1 Tablet By Mouth Every Other Day Bautista Lim MD Calcium Citrate Chewy Rffo664-54.5mg-mcg Chewtabs 1 by mouth twice a day Maria A Chambers M.D. Telxvvmkr23mb Tablets 1 by mouth every day prn Unknown Vital Signs Date Vital Result Comment 02/04/2024 1:10pm BP Systolic 108 mmHg BP Diastolic 56 mmHg Heart Rate 73 /min Height 66 inches 5'6 Weight 163.50 lb BMI (Body Mass Index) 26.4 kg/m2 Results Test Acquired Date Facility Test Result H/L Range N ote Vitamin D, 25-Hydroxy 04/05/2024 [facility] Vitamin D, 25-Hydroxy 72.5 ng/mL 30.0-100. 0 1 TSH 04/05/2024 [facility] TSH 0.671 uIU/mL 0.450-4.5 00 Thyroxine (T4) Free, Direct 04/05/2024 [facility] Thyroxine (T4) Free, Direct 1.40 ng/dL 0.82-1.77 TSH reflex to T4F 01/23/2024 [facility] TSH reflex to T4F 0.260 uIU/mL Low 0.450-4.5 00 TSH With Reflex To FT4 08/08/2023 [facility] TSH With Reflex To FT4 <pending> TSH 08/06/2023 [facility] TSH 0.03 uIU/mL Low (0.4-4.2) Free T4 08/06/2023 [facility] Free T4 1.65 ng/dL (0.70-1.8 0) Homocysteine, Plasma 08/06/2023 [facility] Homocysteine, Plasma 8.1 UMOL/L (0-15) Calcium 04/10/2023 [facility] Calcium 10.0 mg/dL (8.6-10.5 ) BUN 04/10/2023 [facility] BUN 15 mg/dL (8-23) Albumin 04/10/2023 [facility] Albumin 4.4 GM/DL (3.4-4.8) Creatinine 04/10/2023 [facility] Creatinine 0.9 mg/dL (0.5-1.0) Estimated GFR Creatinine 69 ML/MIN/1.7 3M2 2 TSH With Reflex To FT4 04/10/2023 [facility] TSH With Reflex To FT4 2.22 uIU/mL (0.4-4.2) TSH With Reflex To FT4 03/24/2023 [facility] TSH With Reflex To FT4 <pending> 1 Vitamin D deficiency has been defined by the [place] of Medicine and an Endocrine Society practice guideline as a level of serum 25-OH vitamin D less than 20 ng/mL (1,2). The Endocrine Society went on to further define vitamin D insufficiency as a level between 21 and 29 ng/mL (2). 1. IOM ([place] of Medicine). 2010. Dietary reference intakes for calcium and D. [place]: The National Academies Press. 2. Belle OCAMPO, Alejandro YU, Emerita FULLER, et al. Evaluation, treatment, and prevention of vitamin D deficiency: an Endocrine Society clinical practice guideline. JCEM. 2010; 96(7):1911-30. 2 Creatinine based est imated glomerular filtration (eGFR) in adults is calculated using the National Kidney Foundation recommended 2020 CKD-EPI equation. Estimates GFR from serum creatinine, age and sex. Medical Devices Description No Information Available Encounters Type Date Location Provider Dx Diagnosis Office Visit 02/04/2024 1:00p Main Office Maria A Chambers M.D. E03.9 Hypothyroidism, unspecified E06.3 Autoimmune thyroidit is M81.0 Age-related osteopor osis w/o current pathological fracture Assessments Date Code Description Provider 02/04/2024 E03.9 Hypothyroidism, unspecified Maria A Chambers M.D. 02/04/2024 E06.3 Autoimmune thyroiditis Bogdan Chambers M.D. 02/04/2024 M81.0 Age-related oste oporosis without current pathological fracture Maria A Chambers M.D. Plan of Treatment Future Appointment(s):* 11/10/2024 3:00 pm - Maria A Chambers M.D. at Main Office 03/24/2023 - Maria A Chambers M.D.* E03.9 Hypothyroidism, unspecified * R53.82 Chronic fatigue, unspecified * E06.3 Autoimmune thyroiditis * M81.0 Age-related osteoporosis without current pathological fracture * * New Labs:* TSH With Reflex To FT4, Ordered: 03/24/23 Functional Status Description No Information Available Mental Status Description No Information Available Referrals Description No Information Available
--- OUTSIDE RECORDS SUMMARY | 2024-10-21 18:18 | XMS_ITS | Clinical Summary ---
Author Organization [facility] Address [address] [place] [address] Phone Care Team Providers Care Gas Turbine Powerplant Mechanic Helper Name Role Phone Sagar Jordan MD Primary Care Provider [phone] Allergies Active Allergy Reactions Criticality Noted Date Comments Amoxicillin-Pot Clavulanate Unknown 10/22/19 25 Pneumococcal Vaccine Rash 10/21/2024 Sulfa (Sulfonamide Antibiotics) Unknown 10/12 Encounters Date Type Department Care Team Description 10/21/2024 12:22 PM EDT - 10/21/2024 4:59 PM EDT Emergency [facility] Emergency [address] [place] [address] Discharge Disposition: Home or Self Care from Last 3 Months Medical History Medical History Date Comments Family history of cardiovascular disease DX:Family history of cardiovascular disease Hyperlipidemia DX:Hyperlipidemi a Cancer ([facility] V24, [facility] V28) Family History Medical History Relation Name Comments Heart attack Brother Heart attack Father Relation Name Status Comments Brother Alive Father Social History Tobacco Use Types Packs/Day Years Used Date Smoking Tobacco: Never Smokeless Tobacco: Never Comments Unknown Sex and Gender Information Value Date Recorded Sex Assigned at Female 10/21/2024 4:55 PM EDT Legal Sex Female 11:17 AM EST Gender Identity Female 10/21/2024 4:55 PM EDT Sexual Orientation Choose not to disclose 2024 4:55 PM EDT Obstetrics History Last Filed Vital Signs Vital Sign Reading Time Taken Comments Blood Pressure 111/75 10/21/2024 12:30 PM EDT Pulse 60 10/21/2024 12:30 PM EDT Temperature 36.5 ??C (97.7 ??F) 10/21/2024 12:30 PM E DT Respiratory Rate 16 10/21/2024 12:30 PM EDT Oxygen Saturation 100% 10/21/2024 12:30 PM EDT Inhaled Oxygen Concentration - - Weight 71.7 kg (158 lb) 10/21/2024 12:30 PM EDT Height 167.6 cm (5' 6 ) 10/21/2024 12:30 PM EDT Body Mass Index 25.5 10/21/2024 12:30 PM EDT Plan of Treatment Health Maintenance Due Date Last Done Comments Breast Cancer Screening 1950 DTaP,Tdap,and Td Vaccines (1 - Tdap) 12/10/1970 02/23/2010 Pneumococcal Vaccine: 50+ Years (1 of 1 - PCV) 12/10/2001 08/17/2018, 08/19/2007 Cholesterol Screening (Lipid Panel) 06/11/2022 Colorectal Cancer Screening: Colonoscopy 06/11/2022 Depression Screening 06/11/2022 Falls Risk Assessment 06/11/2022 Hepatitis C Screening 06/11/2022 Osteoporosis Screening (Bone Density Screening) 06/11/2022 Social Influencers of Health Screening 06/11/2022 Hypertension/CHF/CAD Annual BMP Blood Test 08/29/2023 COVID-19 Vaccine ( season) 2024 10/24/2020, 10/03/2020 RSV Immunization Adult Patients (1 - 1-dose 75+ series) 12/10/2026 Zoster Vaccines Completed 08/01/2018, 05/03/2018 Influenza Vaccine Completed 06/21/2024, , 05/13/2022, Additional history exists HIB Vaccines Aged Out No longer eligi ble based on patient's age to complete this topic HPV Vaccines Aged Out No longer eligi ble based on patient's age to complete this topic Hepatitis A Vaccines Aged Out No long er eligible based on patient's age to complete this topic Hepatitis B Vaccines Aged Out No long er eligible based on patient's age to complete this topic IPV Vaccines Aged Out No longer eligi ble based on patient's age to complete this topic MMR Vaccines Aged Out No longer eligi ble based on patient's age to complete this topic Meningococcal ACWY Vaccine Aged Out N o longer eligible based on patient's age to complete this topic Meningococcal B Vaccine Aged Out No l onger eligible based on patient's age to complete this topic RSV Immunization Patients Under 20 months Aged Out No longer eligible based on patient's age to complete this topic Varicella Vaccines Aged Out No longer eligible based on patient's age to complete this topic Insurance MEDICARE [facility] Care Teams Gas Turbine Powerplant Mechanic Helper Relationship Specialty Start Date End Date Sagar Jordan MD [address] [place] [address] PCP - General 04/09/22
--- OUTSIDE RECORDS SUMMARY | 2024-10-21 18:18 | XMS_ITS | Encounter Summary ---
Author Organization [facility] Address [address] [place] [address] Care Team Providers Care Beverage Inspection Machine Tender Name Role Phone Sagar Jordan MD Primary Care Provider [phone] Reason for Visit * Reason Comments Abdominal Pain Lower abd pain, went to urgent care and was referred to ed. Encounter Details Date Type Department Care Team ([facility] st Contact Info) Description 10/21/2024 12:22 PM EDT - 10/21/2024 4:59 PM EDT Emergency [facility] Emergency [address] [place] [address] Discharge Disposition: Home or Self Care Social History Tobacco Use Types Packs/Day Years Used Date Smoking Tobacco: Never Smokeless Tobacco: Never Comments Unknown Sex and Gender Information Value Date Recorded Sex Assigned at Female 10/21/2024 4:55 PM EDT Legal Sex Female 11:17 AM EST Gender Identity Female 10/21/2024 4:55 PM EDT Sexual Orientation Choose not to disclose 2024 4:55 PM EDT documented as of this encounter Last Filed Vital Signs Vital Sign Reading [...] Mass Index 25.5 10/21/2024 12:30 PM EDT documented in this encounter Discharge Disposition Disposition Code Departure Means Destination Comment s Home or Self Care Call no response x 3 documented in this encounter Progress Notes * Janeth Giordano RN - 10/21/2024 12:28 PM EDT Pt reports has had vague abd pain for a couple months . Sts had knee replacement 3 months ago was on oxycodone tramadol meloxicam , sts I just thought it was because of the medicines reports increasing low abd pain . Denies n/v/d. Denies urinary symptoms documented in this encounter Plan of Treatment Scheduled Orders Name Type Priority Associated Diagnoses Orde r Schedule CBC and differential Lab STAT STAT for 1 Occurrences starting 10/21/2024 until 10/21/2024 Comprehensive metabolic panel Lab STAT STAT for 1 Occur rences starting 10/21/2024 until 10/21/2024 Lipase Lab STAT STAT for 1 Occ urrences starting 10/21/2024 until 10/21/2024 CBC auto differential Lab Routine Onc e for 1 Occurrences starting 10/21/2024 until 10/21/2024 documented as of this encounter Visit Diagnoses Not on filedocumented in this encounter Care Teams Beverage Inspection Machine Tender Relationship Specialty Start Date End Date Sagar Jordan MD [address] [place] [id number] PCP - General 04/09/22 documented as of this encounter
--- NOTE | 2024-10-21 18:36 | ED_ITS ---
HPI - Abdominal Pain General Chief Complaint: Abdominal Pain Stated Complaint: abd pain Time Seen by Provider: 10/21/24 18:03 History of Present Illness HPI narrative: Patient is a 73-year-old female presents today with having abdominal pain the pain is been ongoing for few months with some nausea but the last 3 days has been especially worse now in the lower abdomen. There is no change in bowel movement. there is no change with urination. Patient is from home. No fever no chills. No cough no congestion or upper respiratory symptoms. No diaphoresis. No history of previous abdominal surgery. Not on blood thinners. Related Data Home Medications ?Medication ?Instructions ?Recorded ?Confirmed calcium 333 mg tab PO 02/17/21 (carbonate)-magnesium 133 mg (oxide)-zinc 5 mg tablet levothyroxine 75 mcg tablet 75 mcg PO DAILY 02/17/21 lidocaine HCl 2 % mucosal solution ml PO 02/17/21 (Lidocaine Viscous) melatonin 5 mg capsule mg PO 02/17/21 omega 3,5,6,7,9 combination no.1 cap PO 02/17/21 700 mg-salmon oil 1,500 mg capsule (Complete [place]) sertraline 25 mg tablet mg PO 02/17/21 meloxicam 15 mg tablet 15 mg PO DAILY 10/08/22 Allergies Allergy/AdvReac Type Severity Reaction Status Date / Time amoxicillin [From Augmentin] AdvReac Headache Verified 10/21/24 16:04 clavulanic acid AdvReac Headache Verified 10/21/24 16:04 [From Augmentin] pnemonia vaccine Allergy Intermediate streaks Uncoded 02/17/21 10:58 going down arm, itchiness Review of Systems Review of Systems Positive abdominal pain Yes all other systems are reviewed and are negative [facility] Past Medical History Medical History (Updated 10/21/24 @ 21:41 by Tasha Ramírez MD) Knee injury Anuel's disease Sleep apnea Anxiety High cholesterol Social History Social History Alcohol intake: never Patient Tobacco Use Status: Never used Tobacco Smoked in Last 30 Days: No Use of substances other than those prescribed or required for medical reasons: No Advance Directives: Yes Advance Directives Information Provided: Yes Advance Directives on File: No Do you have a plan to hurt others: No Plan Physical Exam ED Vital Signs: Vital Signs - 24 hr 10/21/24 16:03 10/21/24 18:06 Temperature 97.7 F Pulse Rate 78 68 Respiratory Rate 16 18 Blood Pressure 122/45 L 144/60 H Pulse Oximetry 99 97 Oxygen Delivery Method Room Air Room Air BMI result Body Mass Index 24.9 Appearance: Alert. Oriented X3. No acute distress. Eyes: Pupils equal, round and reactive to light. ENT: Pharynx normal. Neck: Normal inspection. Neck supple. No lymph nodes noted. No crepitus CVS: Normal heart rate and rhythm. Pulses normal. Normal S1 and S2 Respiratory: No respiratory distress. Breath sounds normal. No Wheezing. No rales Abdomen: mild lower abdominal pain. No rebound or guarding Skin: Skin warm and dry. Normal skin color. Normal skin turgor. Extremities: No lower extremity edema. Neurovascular intact to all extremities. No Lacerations. No Rash Neuro: Oriented X 3. No motor deficit. No sensory deficit. Moving all extermities. No slurred speech Medical Decision Making Medical Decision Making [facility] Narrative: patient has lower abdominal pain with normal white count but abdominal pain has been ongoing. CT scan positive for likely appendicitis. Antibiotic was started. Patient's case consulted by surgery. Differential Diagnosis Differential Diagnoses: The differential diagnosis associated with the presentation includes Appendicitis versus obstruction versus diverticulitis versus kidney stone Admission/Observation Consideration of admission/observation: Escalation of care including admission/observation considered Consult Healthcare Provider Management of the patient was discussed with: Labor Contract Analyst ( surgery) Lab Data [facility] Lab Attestation statement: I reviewed the patient's lab results. 10/21/24 16:31 10/21/24 16:31 Labs: Lab Results 10/21/24 Range/Units 16:31 WBC 6.1 (4.8-10.8) X10*3/uL RBC 3.88 L (4.20-5.50) X10*6/uL Hgb 12.2 (12.0-16.0) g/dl Hct 36.4 L (37.0-47.0) % MCV 93.8 (80.0-98.0) fL MCH 31.4 (27.0-33.0) pg MCHC 33.5 (31.0-35.0) g/dl RDW 13.0 (11.0-16.0) % Plt Count 160 (160-400) X10*3/uL MPV 11.3 (9.4-12.3) fL Immature Gran % (Auto) 0.5 H (0.0-0.4) % Neut % (Auto) 71.6 (45-73) % Lymph % (Auto) 21.6 (20-40) % [place] % (Auto) 4.0 (2-11) % Eos % (Auto) 1.8 (0-4) % Baso % (Auto) 0.5 (0-2) % Lymph # (Auto) 1.3 (1.2-4.9) X10*3/uL [place] # (Auto) 0.2 (0.1-1.2) X10*3/uL Eos # (Auto) 0.1 (0.0-0.4) X10*3/uL Baso # (Auto) 0.0 (0.0-0.2) X10*3/uL Abs Immat Gran (auto) 0.03 (0.00-0.03) X10*3/uL Absolute Neuts (auto) 4.3 (2.0-8.3) x10*3/uL Absolute Nucleated RBC 0.000 (0.0-0.012) X10*3/uL Nucleated RBC % (auto) 0.0 (0.0-0.2) /100WBC Sodium 142 (135-145) mmol/L Potassium 3.9 (3.3-5.1) mmol/L Chloride 107 (96-108) mmol/L Carbon Dioxide 27 (22-29) mmol/L Anion Gap 12 (12-20) BUN 19 H (9-16) mg/dL Creatinine 0.73 (0.5-1.4) mg/dL Estim Creat Clear Calc 65.2 Estimated GFR > 60 Random Glucose 175 H (60-115) mg/dL Calcium 9.4 D (8.4-10.2) mg/dL Magnesium 1.9 (1.6-2.6) mg/dL Total Bilirubin 0.3 (0.0-1.0) mg/dL Direct Bilirubin 0.1 (0.0-0.5) mg/dL AST 24 (5-31) U/L ALT 22 (0-31) U/L Alkaline Phosphatase 57 (39-117) U/L Total Protein 6.9 (6.5-8.0) g/dL Albumin 4.1 (3.5-5.0) g/dL Lipase 44 (8-78) U/L Urine Color Yellow Urine Appearance Clear Urine pH 5.5 (5.0-9.0) Ur Specific [place] 1.015 (1.005-1.025) Urine Protein Negative (Neg-Trace) mg/dL Urine Glucose (UA) Negative (Negative) mg/dL Urine Ketones Negative (Negative) mg/dL Urine Blood Moderate (2+) H (Negative) Urine Nitrite Negative (Negative) Ur Leukocyte Esterase Negative (Negative) Urine RBC 6-10 H (0-2) /HPF Urine WBC 0-5 (0-5) /HPF Ur Squamous Epith Cells 0-2 (0-2) /HPF Urine Bacteria None Seen (None Seen) Hyaline Casts 0-2 (0-2) /LPF Radiology Impression Discussion of test interpretation with radiology: I discussed test interpretation with the radiologist and I have reviewed the radiologist's reading. Chronic Conditions abdominal pain Social Determinants Patient?s care significantly limited by Social Determinants of Health including: Problems related to primary support group Medications Administered Discontinued Medications Generic Name Dose Route Start Last Admin Trade Name Freq PRN Reason Stop Dose Admin Iohexol 100 ml 10/21/24 20:31 10/21/24 20:31 Iohexol 350 Mg/Ml 100 Ml Infus..Btl IV 10/21/24 20:32 85 ml ONCE ONE Administration Discharge Plan Discharge Clinical Impression: Abdominal pain, Acute appendicitis Patient Disposition: Admitted As Inpatient Prescriptions: No Action lidocaine HCl [Lidocaine Viscous] 2 % solution PO levothyroxine 75 mcg tablet 75 mcg PO DAILY sertraline 25 mg tablet PO melatonin 5 mg capsule PO Complete [place] 700-1,500 mg-mg capsule PO calcium carb-mag ox-zinc gluc 333-133-5 mg tablet PO meloxicam 15 mg tablet 15 mg PO DAILY Print Language: Yi
[2024-10-21] MEDS: iohexoL 350 MG/ML 100 ML INFUS..BTL IV (20:31)
[2024-10-21 21:53] VITALS: BP 127/72; PULSE 65; RESP 16; TEMP 36.8; O2SAT 97
[2024-10-21] MEDS: cefTRIAXone sodium 2 GM VIAL IVPUSH (21:55)
[2024-10-21] MEDS: metroNIDAZOLE/NS 500 MG/100 ML PIGGYBACK 100 MG IV (21:55)
--- NOTE | 2024-10-21 22:04 | PC.NURSE ---
Per Dr. Ramírez blood draw for blood cultures is not needed at this time, OK to administer IV antibiotics.
--- NOTE | 2024-10-21 22:19 | PC.NURSE ---
Patient medicated per MAR.
[2024-10-21] MEDS: Lactated Ringers 1,000 ML 100 ML IVCONT (23:24)
--- NOTE | 2024-10-21 23:33 | PM.HPGS ---
History of Present Illness History of Present Illness Date of Service: 10/21/24 Chief complaint: abdominal pain Narrative: Eileen Allen is a 73 year old female who presents to the emergency room complaining of abdominal pain which has been worsening since yesterday. She describes it as being diffuse and sharp at times. She has been having GI upset with some nausea etc. for the last several months. She said she had a knee replacement surgery the beginning of the year and afterwards was on a lot of pain medication and had trouble with upset stomach etc.. She was taking stool softeners with her pain meds to try to prevent constipation. Eventually her needed well and she was taking more meloxicam and not taking as much stool softeners anymore. She recently just stopped all pain medication. She has been having more abdominal pain after a short improvement for a few months. She has not thrown up no sick contacts no unusual diet. She has not had any fevers or recently. No urinary symptoms. She has had breast cancer in his status post lumpectomy and then mastectomy on the right and was determined to be high-risk for other cancers and had both ovaries removed in the past. [facility] Past Medical History Medical History Knee injury Anuel's disease Sleep apnea Anxiety High cholesterol Social History Social History Alcohol intake: never Patient Tobacco Use Status: Never used Tobacco Smoked in Last 30 Days: No Use of substances other than those prescribed or required for medical reasons: No Advance Directives: Yes Advance Directives Information Provided: Yes Advance Directives on File: No Do you have a plan to hurt others: No Plan Meds Allergies Allergy/AdvReac Type Severity Reaction Status Date / Time amoxicillin [From Augmentin] AdvReac Headache Verified 10/21/24 16:04 clavulanic acid AdvReac Headache Verified 10/21/24 16:04 [From Augmentin] pnemonia vaccine Allergy Intermediate streaks Uncoded 02/17/21 10:58 going down arm, itchiness Active Medications: Current Medications Acetaminophen (Acetaminophen 325 Mg Tablet) 650 mg PO Q6H PRN PRN Reason: Pain, Mild 1-3,fever,headache Hydromorphone HCl (Hydromorphone Hcl 1 Mg/Ml Syringe) 0.5 mg IVPUSH Q4H PRN; Protocol PRN Reason: Pain, Severe (Pain Scale 7-10) Lactated Ringer's (Lr) 1,000 mls @ 100 mls/hr IVCONT .Q10H [facility] Last Admin: 10/21/24 23:24 Dose: 100 mls/hr Piperacillin Sod/Tazobactam (Sod 3.375 gm/ Sodium Chloride) 50 mls @ 100 mls/hr IV RQ6H [facility] Magnesium Hydroxide (Milk Of Magnesia 30 Ml Oral.Susp) 30 ml PO DAILY PRN PRN Reason: Constipation Melatonin (Melatonin 3 Mg Tablet) 6 mg PO BEDTIME PRN PRN Reason: Insomnia Ondansetron HCl (Ondansetron Hcl 4 Mg/2 Ml Vial) 4 mg IVPUSH Q8H PRN PRN Reason: Nausea and Vomiting Sodium Chloride (0.9 % Sodium Chloride Flush 3 Ml Syringe) 3 ml IVFLUSH QSHIFT [facility] Home Medications ?Medication ?Instructions ?Recorded ?Confirmed ?Last Taken ?Type calcium 333 mg tab PO 02/17/21 Unknown History (carbonate)-magnesium 133 mg (oxide)-zinc 5 mg tablet levothyroxine 75 mcg tablet 75 mcg PO DAILY 02/17/21 Unknown History lidocaine HCl 2 % mucosal solution ml PO 02/17/21 Unknown History (Lidocaine Viscous) melatonin 5 mg capsule mg PO 02/17/21 Unknown History omega 3,5,6,7,9 combination no.1 cap PO 02/17/21 Unknown History 700 mg-salmon oil 1,500 mg capsule (Complete [place]) sertraline 25 mg tablet mg PO 02/17/21 Unknown History meloxicam 15 mg tablet 15 mg PO DAILY 10/08/22 Unknown History Physical Exam Vital Signs: Vital Signs: Last Vital Signs Temp 98.2 F 10/21/24 21:53 Pulse 65 10/21/24 21:53 Resp 16 10/21/24 21:53 BP 127/72 10/21/24 21:53 Pulse Ox 97 10/21/24 21:53 O2 Del Method Room Air 10/21/24 21:53 BMI result Body Mass Index 24.9 Const: General: cooperative, healthy appearing, comfortable and no acute distress Orientation/consciousness: patient oriented x3 Resp: Effort & Inspection: normal respiratory effort Auscultation: clear to auscultation bilaterally Cardio: Rate: regular rate Rhythm: regular rhythm GI: Other: Abdomen is soft nondistended mild tenderness diffusely maybe slightly more so in the right lower quadrant then anywhere else but no guarding no rebound no peritoneal signs no masses Skin: Other: Nonicteric Neuro: General: patient oriented x3 Results Results Labs: Short CBC 10/21/24 Range/Units 16:31 WBC 6.1 (4.8-10.8) X10*3/uL Hgb 12.2 (12.0-16.0) g/dl Hct 36.4 L (37.0-47.0) % Plt Count 160 (160-400) X10*3/uL BMP 10/21/24 16:31 Sodium 142 Potassium 3.9 Chloride 107 Carbon Dioxide 27 BUN 19 H Creatinine 0.73 Calcium 9.4 D Liver Function 10/21/24 Range/Units 16:31 Total Bilirubin 0.3 (0.0-1.0) mg/dL Direct Bilirubin 0.1 (0.0-0.5) mg/dL AST 24 (5-31) U/L ALT 22 (0-31) U/L Alkaline Phosphatase 57 (39-117) U/L Albumin 4.1 (3.5-5.0) g/dL Urine 10/21/24 Range/Units 16:31 Urine Color Yellow Urine Appearance Clear Urine pH 5.5 (5.0-9.0) Ur Specific [place] 1.015 (1.005-1.025) Urine Protein Negative (Neg-Trace) mg/dL Urine Glucose (UA) Negative (Negative) mg/dL Abdomen CT scan report/results: report reviewed and image reviewed CT scan - pelvis: report reviewed and image reviewed Additional studies: Ordering Physician: Tasha Ramírez MD Date of Service: 10/21/24 Procedure(s): CT abdomen pelvis w IV con Accession Number(s): [id number] cc: Tasah Ramírez MD; Physician,Unknown ~ Report Number: [id number]: Total DLP = 500.00 mGy-cm ADDENDUMThis document has been electronically signed by: Reina Lam MD on 10/21/2024 21:15:34 ADDENDUM: This report was discussed with Dr. Ramírez on Oct 21, 2024 21:20:00 EDT. This document has been electronically signed by: Luisa Sales on 10/21/2024 21:20:55 Addendum Dictated By: Reina Lam MD Addendum Signed By: <Electronically signed by Reina Lam MD in [place]> 10/21/242121 Addendum Cosigned By: DD/ /07/2115 TD/TT: 10/21/2405/07/2120 CLINICAL HISTORY: lower abd pain CT abdomen and pelvis with contrast Comparison: None Findings: Mild dependent atelectasis. 1.3 cm peripherally calcified splenic artery aneurysm at the hilum. Liver, gallbladder, spleen, pancreas, and adrenal glands are within normal limits. CBD measures 7-8 mm with distal tapering. No hydronephrosis. Symmetric contrast enhancement of the kidneys. Nonobstructing calculus in the right kidney. No bowel obstruction, pneumatosis or pneumoperitoneum. Appendix is mildly dilated at the base with mild surrounding fat stranding. Large amount of stool in the cecum. Pelvic contents are within normal limits. The bones are intact. IMPRESSION: 1. Mildly dilated appendix with mild surrounding fat stranding, concerning for acute appendicitis. No perforation or abscess. 2. CBD measures 7-8 mm with distal tapering, favored to be age-related dilatation. Correlate with LFTs. This document has been electronically signed by: Reina Lam MD on 10/21/2024 21:15:34 Dictated By: Reina Lam MD Signed By: <Electronically signed by Reina Lam MD in [place]> 10/21/242115 DD/ 14 TD/TT: 10/21/242114 [employer] Testing: Assessment and Plan (1) Abdominal pain: Status: Acute Plan 73-year-old female with some acute on chronic abdominal pain generalized maybe slightly more in the right lower quadrant but nothing very more significantly in this area no fevers no chills not necessarily associated with diet. Blood work all normal. CT scan showing findings consistent with maybe some early appendicitis with minimally dilated appendix and some faint surrounding stranding. Patient also noted to have significant stool in the cecum. At this point not convinced that she does have appendicitis or plan will be to keep NPO admit we will do some IV antibiotics and IV hydration but also do a bowel regimen overnight and re-evaluate her exam. We will do about a 3rd of a bottle of magnesium citrate. This was discussed with the patient she understands and agrees with the above plan Quality Stroke Does the patient have a stroke diagnosis?: No VTE Prior VTE?: No VTE Risk Level:: Surgical - low VTE Device Contraindication: N/A - Device Ordered VTE Drug Contraindication: Treatment Not Indicated Procedures Date of Service Date of Service: 10/21/24
[2024-10-22] MEDS: diazePAM 2 MG TABLET PO ×2 (00:10→20:56)
[2024-10-22] MEDS: Sertraline HCL 50 MG TABLET PO ×2 (00:10→20:56)
[2024-10-22] MEDS: Piperacillin Sodium/Tazobactam 3.375 GM in 0.9 % Sodium Chloride 50 ML IV ×4 (00:10→17:08)
[2024-10-22] MEDS: Magnesium Citrate 300 ML SOLUTION 100 ML PO (00:11)
[2024-10-22 06:11] VITALS: BP 125/56; PULSE 59; RESP 16; TEMP 36.7; O2SAT 98
[2024-10-22 07:01] LABS: MANUAL DIFF FLAG NO
[2024-10-22 07:07] LABS: Basophils Percent Auto 0.6 % (0-2); Eosinophils Absolute Auto 0.1 X10*3/uL (0.0-0.4); Eosinophils Percent Auto 2.2 % (0-4); Hematocrit 37.7 % (37.0-47.0); Hemoglobin 12.3 g/dl (12.0-16.0); Imm Gran Abs Auto 0.02 X10*3/uL (0.00-0.03); Imm Gran Pct Auto 0.4 % (0.0-0.4); Lymphocytes Absolute Auto 1.3 X10*3/uL (1.2-4.9); Lymphocytes Percent Auto 24.3 % (20-40); Mean Corpuscular HGB Conc 32.6 g/dl (31.0-35.0); Mean Corpuscular Hemoglobin 31.1 pg (27.0-33.0); Mean Corpuscular Volume 95.4 fL (80.0-98.0); Mean Platelet Volume 11.6 fL (9.4-12.3); Monocytes Absolute Auto 0.5 X10*3/uL (0.1-1.2); Monocytes Percent Auto 8.8 % (2-11); Neutrophils Absolute Auto 3.4 x10*3/uL (2.0-8.3); Neutrophils Percent Auto 63.7 % (45-73); Platelet Count 141 X10*3/uL (160-400); Red Blood Count 3.95 X10*6/uL (4.20-5.50); White Blood Count 5.3 X10*3/uL (4.8-10.8)
[2024-10-22 07:20] LABS: Anion Gap 12 (12-20); Blood Urea Nitrogen 16 mg/dL (9-16); Carbon Dioxide 25 mmol/L (22-29); Chloride 110 mmol/L (96-108); Estimated Glomerular Filt Rate > 60; Glucose Random 88 mg/dL (60-115); Potassium 4.1 mmol/L (3.3-5.1); Sodium 143 mmol/L (135-145)
--- NOTE | 2024-10-22 07:38 | PM.PNGS ---
Subjective Subjective Date of Service: 10/22/24 <Mirtha Allison PA-C - Last Filed: 10/22/24 07:42> 10/22/24 <Darvin Rahman MD - Last Filed: 10/22/24 16:44> Interval history: Had multiple liquid BMs after mag citrate. Feels a little better. Denies pain but reports a little discomfort in lower abd, overall improved. <Mirtha Allison PA-C - Last Filed: 10/22/24 07:42> Had multiple liquid BMs after mag citrate. Feels a little better. Denies pain but reports a little discomfort in lower abd, overall improved. She says she has had GI issues for 2-3 months <Darvin Rahman MD - Last Filed: 10/22/24 16:44> Physical Exam Vital Signs: Vital Signs: Last Vital Signs Temp 98.1 F 10/22/24 06:11 Pulse 59 10/22/24 06:11 Resp 16 10/22/24 06:11 BP 125/56 L 10/22/24 06:11 Pulse Ox 98 10/22/24 06:11 O2 Del Method Room Air 10/22/24 06:11 BMI result Body Mass Index 24.9 <Mirtha Allison PA-C - Last Filed: 10/22/24 07:42> Const: General: comfortable, no acute distress and alert <Mirtha Allison PA-C - Last Filed: 10/22/24 07:42> Orientation/consciousness: patient oriented x3 <Mirtha Allison PA-C - Last Filed: 10/22/24 07:42> GI: Inspection: No distended <Mirtha Allison PA-C - Last Filed: 10/22/24 07:42> Palpation (GI): Soft to palpation, Tenderness to palpation present (GI) (mild RLQ ) at McBurney's point; Rovsing's sign negative, no guarding and not rigid <Mirtha Allison PA-C - Last Filed: 10/22/24 07:42> Skin: General skin exam: no rashes or lesions noted <Mirtha Allison PA-C - Last Filed: 10/22/24 07:42> Neuro: General: patient oriented x3 and moves all extremities <Mirtha Allison PA-C - Last Filed: 10/22/24 07:42> Objective Data Active Medications Acetaminophen (Acetaminophen 325 Mg Tablet) 650 mg PO Q6H PRN PRN Reason: Pain, Mild 1-3,fever,headache Diazepam (Diazepam 2 Mg Tablet) 2 mg PO BEDTIME PRN PRN Reason: Sleep Last Admin: 10/22/24 00:10 Dose: 2 mg Documented By: RICHARD Hydromorphone HCl (Hydromorphone Hcl 1 Mg/Ml Syringe) 0.5 mg IVPUSH Q4H PRN; Protocol PRN Reason: Pain, Severe (Pain Scale 7-10) Lactated Ringer's (Lr) 1,000 mls @ 100 mls/hr IVCONT .Q10H [facility] Last Admin: 10/21/24 23:24 Dose: 100 mls/hr Documented By: RICHARD Piperacillin Sod/Tazobactam (Sod 3.375 gm/ Sodium Chloride) 50 mls @ 100 mls/hr IV RQ6H [facility] Last Infusion: 10/22/24 06:45 Dose: Infused Documented By: RICHARD Magnesium Hydroxide (Milk Of Magnesia 30 Ml Oral.Susp) 30 ml PO DAILY PRN PRN Reason: Constipation Melatonin (Melatonin 3 Mg Tablet) 6 mg PO BEDTIME PRN PRN Reason: Insomnia Ondansetron HCl (Ondansetron Hcl 4 Mg/2 Ml Vial) 4 mg IVPUSH Q8H PRN PRN Reason: Nausea and Vomiting Sodium Chloride (0.9 % Sodium Chloride Flush 3 Ml Syringe) 3 ml IVFLUSH QSHIFT [facility] Last Admin: 10/22/24 00:15 Dose: Not Given Documented By: RICHARD Non-Admin Reason: IV Running <Mirtha Allison PA-C - Last Filed: 10/22/24 07:42> Labs CBC & Chem 7: 10/22/24 06:46 10/22/24 06:46 <Mirtha Allison PA-C - Last Filed: 10/22/24 07:42> Labs: Laboratory Results - last 24 hr 10/21/24 10/22/24 16:31 06:46 MCV 93.8 95.4 MCH 31.4 31.1 MCHC 33.5 32.6 RDW 13.0 13.0 Plt Count 160 141 L MPV 11.3 11.6 Immature Gran % (Auto) 0.5 H 0.4 Neut % (Auto) 71.6 63.7 Lymph % (Auto) 21.6 24.3 [place] % (Auto) 4.0 8.8 Eos % (Auto) 1.8 2.2 Baso % (Auto) 0.5 0.6 Lymph # (Auto) 1.3 1.3 [place] # (Auto) 0.2 0.5 Eos # (Auto) 0.1 0.1 Baso # (Auto) 0.0 0.0 Abs Immat Gran (auto) 0.03 0.02 Absolute Neuts (auto) 4.3 3.4 Absolute Nucleated RBC 0.000 0.000 Nucleated RBC % (auto) 0.0 0.0 Anion Gap 12 12 Estim Creat Clear Calc 65.2 71.0 Estimated GFR > 60 > 60 Random Glucose 175 H 88 Calcium 9.4 D 9.0 Magnesium 1.9 Total Bilirubin 0.3 Direct Bilirubin 0.1 AST 24 ALT 22 Alkaline Phosphatase 57 Total Protein 6.9 Albumin 4.1 Lipase 44 Urine Color Yellow Urine Appearance Clear Urine pH 5.5 Ur Specific [place] 1.015 Urine Protein Negative Urine Glucose (UA) Negative Urine Ketones Negative Urine Blood Moderate (2+) H Urine Nitrite Negative Ur Leukocyte Esterase Negative Urine RBC 6-10 H Urine WBC 0-5 Ur Squamous Epith Cells 0-2 Urine Bacteria None Seen Hyaline Casts 0-2 <Mirtha Allison PA-C - Last Filed: 10/22/24 07:42> Procedures Date of Service Date of Service: 10/22/24 <Mirtha Allison PA-C - Last Filed: 10/22/24 07:42> 10/22/24 <Darvin Rahman MD - Last Filed: 10/22/24 16:44> Progress Note: A&P Assessment and plan (1) Acute appendicitis: Status: Acute <Mirtha Allison PA-C - Last Filed: 10/22/24 07:42> Assessment and Plan: States she feels much better this morning Minimal pain on the right side No nausea or vomiting WBC normal I have reviewed her CAT scan - minimal fat stranding around the appendix, no appendicolith She does have a very heavy fecal load in the cecum Exam very benign, findings equivocal Okay to she how she does with diet We will continue to serially examined Seen and examined independently <Darvin Rahman MD - Last Filed: 10/22/24 16:44> (2) Abdominal pain: Status: Acute <Mirtha Allison PA-C - Last Filed: 10/22/24 07:42> Assessment and Plan: Admitted with lower abd pain, CT scan showing right colon FOS, mild periappendiceal fat stranding. Overall patient feels improved and denies significant pain but does remain mildly tender in the RLQ without peritoneal signs. May be early acute appendicitis but at this point can continue nonoperative management with IV abx. Will advance diet. If tolerating and remains improved, possible dc to home later today or tomorrow. <Mirtha Allison PA-C - Last Filed: 10/22/24 07:42> Time Spent With Patient Time: Total time managing care of this patient today ____ minutes. <Mirtha Allison PA-C - Last Filed: 10/22/24 07:42> Quality Stroke Does the patient have a stroke diagnosis?: No <Mirtha Allison PA-C - Last Filed: 10/22/24 07:42> VTE Prior VTE?: No <Mirtha Allison PA-C - Last Filed: 10/22/24 07:42> VTE Risk Level:: Surgical - low <Mirtha Allison PA-C - Last Filed: 10/22/24 07:42> VTE Device Contraindication: N/A - Device Ordered <Mirtha Allison PA-C - Last Filed: 10/22/24 07:42> VTE Drug Contraindication: Treatment Not Indicated <RYANN Daniels Last Filed: 10/22/24 07:42>
--- NOTE | 2024-10-22 07:39 | PC.NURSE ---
resting comfortably. 07/23 pain. states surgical PA was in and has cleared patient to eat. Awaits confirmation of this. NAD.
[2024-10-22] MEDS: Lactated Ringers 1,000 ML 100 ML IVCONT ×2 (10:47→20:57)
--- NOTE | 2024-10-22 10:47 | PHA.MEDREC ---
Addendum entered by Rosemarie Pisano RPh 10/22/24 11:28: reviewed by [facility]. Original Note: Pharmacy Consult ? Medication Reconciliation Pharmacy has completed the medication reconciliation. Spoke to patient to confirm med list. Patient states she is no longer taking Eliquis 2.5 mg (only given for surgery) Gabapentin 100 mg, Melatonin 5 mg, Meloxicam 15 mg, and Oxycodone 5 mg. Patient states she takes Atorvastatin 40 mg every other day, however claims has Atorvastatin 40 daily, last filled 06/14/24 for 90 days, Diazepam 2 mg at bedtime, however claims says Diazapam 2 my TID prn.
--- NOTE | 2024-10-22 11:18 | MHC.CM.PN ---
FROM HOME WITH [facility] W/ SERVICES, NO DME, HCP AT HOME WITH WILL PCP TANIA MCKEON [facility]IC[facility]- [facility] DELIVERED DCP- HOME SELF CARE PRIVATE TRANSPORT
[2024-10-22 11:44] VITALS: BP 122/71; PULSE 66; RESP 14; TEMP 36.3; O2SAT 97
[2024-10-22 11:56] VITALS: BMI 24.4
[2024-10-22 15:16] VITALS: BP 138/76; PULSE 60; RESP 14; TEMP 36.1; O2SAT 99
--- NOTE | 2024-10-22 16:42 | PM.EVENT ---
Event Note Date of Service: 10/26/24 Event Note: Patient is seen on afternoon rounds Says she still had pain but this is ?moving around? No nausea or vomiting No fever Nontoxic looking Abdomen is soft, benign, not tender on the right lower quadrant, some tenderness, mild on the right upper quadrant Would continue serial exam I explained to her that at this time, overall clinical picture very equivocal for acute appendicitis On clear liquids She looks well overall Time Spent With Patient Time: Total time managing care of this patient today ____ minutes.
[2024-10-22] MEDS: Docusate Sodium 100 MG CAPSULE PO (20:56)
[2024-10-22 21:41] VITALS: BP 135/66; PULSE 63; RESP 18; TEMP 36.2; O2SAT 99
[2024-10-23] MEDS: Piperacillin Sodium/Tazobactam 3.375 GM in 0.9 % Sodium Chloride 50 ML IV ×2 (00:47→06:01)
[2024-10-23 05:06] VITALS: BP 132/68; PULSE 63; RESP 18; TEMP 36.3; O2SAT 99
[2024-10-23] MEDS: Levothyroxine Sodium 88 MCG TABLET PO (06:46)
[2024-10-23 07:28] VITALS: BP 115/67; PULSE 58; RESP 14; TEMP 36.2; O2SAT 98
[2024-10-23] MEDS: Docusate Sodium 100 MG CAPSULE PO (10:10)
[2024-10-23] MEDS: Omeprazole 20 MG CAPSULE.DR PO (10:11)
[2024-10-23] MEDS: Lactated Ringers 1,000 ML 100 ML IVCONT (10:14)
[2024-10-23 13:44] VITALS: BP 116/62; PULSE 60; RESP 17; TEMP 36.5; O2SAT 98
--- NOTE | 2024-10-23 13:49 | PM.PNGS ---
Subjective Subjective Date of Service: 10/25/24 Interval history: Patient has multiple complaints and issues. A little bit difficult to deal with according to nursing staff as well. She is tolerating her liquid diet. She was given purgatives because of her significant stool burden and is now having loose stool and is annoyed by this. Abdominal symptoms are improved but she still has some discomfort. They are improved from initial admission ,however. Patient was reassured that she has at present no acute surgical issues. Home meds were restarted. Afeb, VSS, Nl WBC Physical Exam Vital Signs: Vital Signs: Last Vital Signs Temp 97.7 F 10/23/24 13:44 Pulse 60 10/23/24 13:44 Resp 17 10/23/24 13:44 BP 116/62 10/23/24 13:44 Pulse Ox 98 10/23/24 13:44 O2 Del Method Room Air 10/23/24 13:44 BMI result Body Mass Index 24.4 GI: Other: Abdomen mildly corpulent, soft, benign. Mild periumbilical tenderness but no evidence of any guarding, rebound, or rigidity. Objective Data Active Medications Acetaminophen (Acetaminophen 325 Mg Tablet) 650 mg PO Q6H PRN PRN Reason: Pain, Mild 1-3,fever,headache Diazepam (Diazepam 2 Mg Tablet) 2 mg PO BEDTIME PRN PRN Reason: Sleep Last Admin: 10/22/24 20:56 Dose: 2 mg Documented By: JERMAIN Docusate Sodium (Docusate Sodium 100 Mg Capsule) 100 mg PO BID [facility] Last Admin: 10/23/24 10:10 Dose: 100 mg Documented By: RIDDHI Hydromorphone HCl (Hydromorphone Hcl 1 Mg/Ml Syringe) 0.5 mg IVPUSH Q4H PRN; Protocol PRN Reason: Pain, Severe (Pain Scale 7-10) Lactated Ringer's (Lr) 1,000 mls @ 100 mls/hr IVCONT .Q10H [facility] Last Admin: 10/23/24 10:14 Dose: 100 mls/hr Documented By: RIDDHI Piperacillin Sod/Tazobactam (Sod 3.375 gm/ Sodium Chloride) 50 mls @ 100 mls/hr IV RQ6H [facility] Last Infusion: 10/23/24 06:33 Dose: Infused Documented By: JERMAIN Levothyroxine Sodium (Levothyroxine Sodium 88 Mcg Tablet) 88 mcg PO MoTuWeThFrSa@0600 [facility] Last Admin: 10/23/24 06:46 Dose: 88 mcg Documented By: JERMAIN Levothyroxine Sodium (Levothyroxine Sodium 88 Mcg Tablet) 44 mcg PO Rodríguez@0600 [facility] Magnesium Hydroxide (Milk Of Magnesia 30 Ml Oral.Susp) 30 ml PO DAILY PRN PRN Reason: Constipation Melatonin (Melatonin 3 Mg Tablet) 6 mg PO BEDTIME PRN PRN Reason: Insomnia Omeprazole (Omeprazole 20 Mg Capsule.Dr) 20 mg PO DAILY@0630 [facility] Last Admin: 10/23/24 10:11 Dose: 20 mg Documented By: RIDDHI Ondansetron HCl (Ondansetron Hcl 4 Mg/2 Ml Vial) 4 mg IVPUSH Q8H PRN PRN Reason: Nausea and Vomiting Sertraline HCl (Sertraline Hcl 50 Mg Tablet) 50 mg PO BEDTIME [facility] Last Admin: 10/22/24 20:56 Dose: 50 mg Documented By: JERMAIN Sodium Chloride (0.9 % Sodium Chloride Flush 3 Ml Syringe) 3 ml IVFLUSH QSHIFT [facility] Last Admin: 10/23/24 10:11 Dose: Not Given Documented By: RIDDHI Non-Admin Reason: IV Running Labs 10/22/24 06:46 10/22/24 06:46 Procedures Date of Service Date of Service: 10/25/24 Progress Note: A&P Assessment and plan (1) Abdominal pain: Status: Acute Plan Current plan is to advance diet as tolerated, DC IV antibiotics. Encourage ambulation/and incentive spirometry. If patient tolerates diet, she can be discharged home with a follow up with her private physician or solderer furnace. Encouraged to minimize her use of narcotics status post her knee surgery from appr 3 months ago,purgatives as needed at home upon d/c. Time Spent With Patient Time: Total time managing care of this patient today ____ minutes. Quality Stroke Does the patient have a stroke diagnosis?: No VTE Prior VTE?: No VTE Risk Level:: Surgical - low VTE Device Contraindication: N/A - Device Ordered VTE Drug Contraindication: Treatment Not Indicated
--- NOTE | 2024-10-23 14:50 | MHC.CM.PN ---
PT EXPECTED TO DC HOME TODAY WITH NO SERVICES VIA PRIVATE TRANSPORT
--- NOTE | 2024-10-23 17:51 | PM.DS ---
DS: Providers Provider Date of Service: 10/23/24 Date of admission: 10/21/24 22:47 Date of discharge: 10/23/24 Primary care physician: Carolynn Mcdonald MD Attending physician on admission: Cristiane Patel Attending physician on discharge: Wilberto Ellsworth DS: Diagnosis Discharge Diagnosis (1) Abdominal pain: Status: Acute DS: Summary Hospital Course Hospital Course: HPI AT ADMISSION: Eilene Allen is a 73 year old female who presents to the emergency room complaining of abdominal pain which has been worsening since yesterday. She describes it as being diffuse and sharp at times. She has been having GI upset with some nausea etc. for the last several months. She said she had a knee replacement surgery the beginning of the year and afterwards was on a lot of pain medication and had trouble with upset stomach etc.. She was taking stool softeners with her pain meds to try to prevent constipation. Eventually her needed well and she was taking more meloxicam and not taking as much stool softeners anymore. She recently just stopped all pain medication. She has been having more abdominal pain after a short improvement for a few months. She has not thrown up no sick contacts no unusual diet. She has not had any fevers or recently. No urinary symptoms. She has had breast cancer in his status post lumpectomy and then mastectomy on the right and was determined to be high-risk for other cancers and had both ovaries removed in the past. Blood work all normal. CT scan showing findings consistent with maybe some early appendicitis with minimally dilated appendix and some faint surrounding stranding. Patient also noted to have significant stool in the cecum. HOSPITAL COURSE: She was admitted to the surgical service for observation. She had some mild lower abd tenderness. Overall picture was equivocal for appendicitis vs abd pain due to stool burden. She was kept NPO, started on empiric IV antibiotics and IV hydration. She was also given a bowel regimen with about a 3rd of a bottle of magnesium citrate for her constipation. She had multiple bowel movements. She felt overall improved but still continued with mild RLQ tenderness. WBC remained normal. Picture was still unclear of appendicitis vs constipation. Her diet was advanced. She reported more diffuse abd pain later in the day and less localized to the RLQ with mild RUQ tenderness. She remained clinically appearing well, afebrile. Serial exams were continued. The following day she felt better with less abd pain and had only very mild periumbilical tenderness without any peritoneal signs. Acute appendicitis thought to be unlikely. IV abx were discontinued. Her diet was advanced. She was tolerating a solid diet without worsening in her pain. She remained comfortable. She remained afebrile with a benign abd exam. She was discharged on 10/23/24 in stable condition. She was encouraged to decrease narcotic use and use purgatives as needed for constipation. She is to follow up with her PCP. Time Attestation Discharge Coordination Time (in mins): 30 Quality: Safe Use of Opioids Does Pt have an Active Cancer Diagnosis on the Problem List?: No Quality: Stroke Does the patient have a stroke diagnosis?: No Physical Exam Vital Signs: Vital Signs: Last Vital Signs Temp 97.7 F 10/23/24 13:44 Pulse 60 10/23/24 13:44 Resp 17 10/23/24 13:44 BP 116/62 10/23/24 13:44 Pulse Ox 98 10/23/24 13:44 O2 Del Method Room Air 10/23/24 13:44 BMI result Body Mass Index 24.4 Const: General: comfortable, no acute distress and alert Orientation/consciousness: patient oriented x3 GI: Inspection: No distended Palpation (GI): Soft to palpation, Tenderness to palpation present (GI) (mild periumbilical) and no guarding Neuro: General: patient oriented x3 Discharge Plan Discharge Anticipated Discharge Date/Time: 10/23/24 13:52 Patient Disposition: Home, Self-Care Discharge Diagnosis: Abdominal pain Referrals: Carolynn Mcdonald MD [Primary Care Provider] - 1 Week Discharge Medications: Continued atorvastatin 40 mg tablet 40 mg PO Q48H anastrozole 1 mg tablet 1 mg PO DAILY levothyroxine 88 mcg tablet 44 mcg PO RAWLS@0600 Rx Instructions: TAKE 1 TABLET BY MOUTH DAILY. EXCEPT TAKE 1/2 TABLET ON SUNDAYS levothyroxine 88 mcg tablet 88 mcg PO MOTUWETHFRSA@0600 diazepam 2 mg tablet 2 mg PO BEDTIME omeprazole 20 mg capsule,delayed release(DR/EC) 20 mg PO DAILY@0630 fluticasone propionate 50 mcg/actuation spray,suspension 2 spray intranasal DAILY PRN (Reason: Allergy Symptoms) sertraline 50 mg tablet 50 mg PO BEDTIME riboflavin (vitamin B2) 400 mg tablet 400 mg PO DAILY Complete Hedley 700-1,500 mg-mg capsule 2 cap PO DAILY calcium carb-mag ox-zinc gluc 333-133-5 mg tablet 1 tab PO BID Discharge Orders: Discharge Order (Routine); Ordered 10/23/24 Ordered By: Wilberto Ellsworth Diet: Advance to usual diet Activity on Discharge: No heavy lifting Stand Alone Forms: Patient Portal Discharge page Print Language: Sami Care Plan Goals: Returned to baseline Health Concerns: No acute concerns Plan of Treatment: Continued convalescence. Purgatives and stool softeners as needed. Avoid narcotics Assessment: Follow-up with private medical doctor or vocational rehabilitation technician Patient Instructions: Appendicitis (GEN) Discharge Date/Time: 10/23/24 17:38
== END 2024-10-23 17:38 | disposition home or self-care (01) | DRG 392 ==
LOC: HO.ED 21:41 → HO.EDOVER 23:05 → HO.S3 10-22 10:51
PROVIDERS: Physician Assistant; Admitting Provider Surgery; Emergency Provider Emergency Medicine Emergency Medical Services; PCP Student in an Organized Health Care Education/Training Program; Visit Provider Surgery
DX: K59.00 Constipation, unspecified (principal); K35.80 Unspecified acute appendicitis; E06.3 Autoimmune thyroiditis; Z79.811 Long term (current) use of aromatase inhibitors; Z79.890 Hormone replacement therapy; Z79.899 Other long term (current) drug therapy
CPT/HCPCS: 36415; 74177; 80048; 80076; 81001; 83690; 83735; 85025; 93005; 99285; J0696; J1836; J2543; J7120; Q9967

== ENCOUNTER → 2024-10-21 16:05 | Outpatient (BNV) | payer MEDICARE, SELFPAY | PROVIDERS: Admitting Provider Surgery; Emergency Provider Emergency Medicine Emergency Medical Services; PCP Student in an Organized Health Care Education/Training Program; Visit Provider Internal Medicine Cardiovascular Disease | DX: R94.31 Abnormal electrocardiogram [ECG] [EKG] (principal); R10.9 Unspecified abdominal pain | CPT/HCPCS: 93010 ==

== ENCOUNTER → 2024-10-21 18:34 | Outpatient (BNV) | payer MEDICARE, SELFPAY | PROVIDERS: Emergency Provider Emergency Medicine Emergency Medical Services; Visit Provider Radiology Diagnostic Radiology | DX: R10.30 Lower abdominal pain, unspecified (principal) | CPT/HCPCS: 74177 ==

== ENCOUNTER → 2024-10-21 22:47 | Outpatient (BNV) | payer MEDICARE, SELFPAY | PROVIDERS: Admitting Provider Surgery; Emergency Provider Emergency Medicine Emergency Medical Services; Visit Provider Surgery | DX: R10.9 Unspecified abdominal pain (principal) | CPT/HCPCS: 99222; 99232; 99499 ==